=== PATIENT | female | born 1945 | race African-American/Black ===

== ENCOUNTER 2022-10-19 19:04 | Emergency (ER) | payer MEDICARE, MEDICAID ==
[~2022-10-19] VITALS: Ht 162.6 cm; Wt 54.5 kg
[2022-10-19 20:46] LABS: GLUCOMETER DEV NAME(LOC) ERT.5; GLUCOSE,POINT OF CARE 145 MG/DL (70-110)
[2022-10-19] MEDS ORDERED: BENZ-70 PO (21:49)
[2022-10-19] MEDS ORDERED: AZIT250T9 PO (21:49)
[2022-10-19] MEDS ORDERED: ACET-3385 PO (21:49)
[2022-10-19 22:05] VITALS: BP 130/82
== END 2022-10-19 23:28 | disposition home or self-care (01) ==
LOC: EMS 19:10
DX: S20.219A Contusion of unspecified front wall of thorax, initial encounter (principal); E11.9 Type 2 diabetes mellitus without complications; I10 Essential (primary) hypertension; F12.90 Cannabis use, unspecified, uncomplicated; Z88.5 Allergy status to narcotic agent; Z91.013 Allergy to seafood; W19.XXXA Unspecified fall, initial encounter; Y93.89 Activity, other specified; Y92.89 Other specified places as the place of occurrence of the external cause; Y99.8 Other external cause status
CPT/HCPCS: 71101; 82962; 99283